=== PATIENT | female | born 1955 | race Caucasian/White ===

== ENCOUNTER → 2016-06-13 | Outpatient (CLI) | payer BC ==
[~2016-06-13] MED LIST: ASPIRIN81 M2 PO; DELTASONE20 MG PO; LANSOPRAZOLE15 MG PO; LASIX20 MG PO; LEVOTHYROXINE112 MCG PO; MOXIFLOXACIN H400 MG PO; XARELTO15 MG PO
--- NOTE | ~2016-06-13 | US85 ---
[facility] A Service of [facility] & [facility] RADIOLOGY TEXT RESULTS PATIENT: JEN GIBSON LOCATION: CNIV : 54 UNIT #: [id number] AGE: [address]: BEV GRESHAM SEX: F ORDER DR: [id number] [facility] [address] [place], [place] [address] [id number] O MR#: [id number] Acc #: [id number] NAME: JEN GIBSON. : 1955 SEX: F STUDY DATE/TIME: 06/13/2016 8:53 UNIT: CNIV ROOM: STUDY DESCRIPTION: LE Veins Unilat or Ltd Stdy Attending Physician: Bev Gresham Aprn Referring Physician: Bev Gresham Aprn Ordering Physician: Bev Gresham Aprn Primary Care Physician: Maria Elena Brownlee M.D. MEDICAL IMAGING REPORT This report is preliminary unless electronic signature is present EXAM Left lower extremity venous duplex 06/13/2016 HISTORY Left lower extremity pain and swelling for 1 week. Evaluate for deep vein thrombosis. TECHNIQUE Venous ultrasound examination of the left lower extremity was performed using grayscale, spectral Doppler and color flow Doppler imaging. FINDINGS The examination is negative. There is no evidence of left lower extremity deep venous thrombus from the groin to the lower calf. Visualized greater saphenous vein is also patent. IMPRESSION Negative examination. No evidence of left lower extremity deep venous thrombosis. Dictated by... Jose Jones M.D. THIS IS AN ELECTRONICALLY VERIFIED REPORT Jose Jones M.D. at 06/13/2016 4:58 PM JUNIOR/clyde TD: 06/13/2016 11:10 JOB #: [id number] MEDICAL IMAGING REPORT Page 1 of 1 COPY
== END | disposition home or self-care (01) ==
LOC: CNIV 08:06
DX: R60.0 Localized edema (principal)
CPT/HCPCS: 93971

== ENCOUNTER → 2016-07-07 | Outpatient (CLI) | payer BC ==
--- NOTE | ~2016-07-07 | US85 ---
[facility] A Service of [facility] & [facility] RADIOLOGY TEXT RESULTS PATIENT: JEN GIBSON LOCATION: SNIV : 54 UNIT #: [id number] AGE: [address]: Priya Haines APRN SEX: F ORDER DR: [id number] [address] [address] [id number] O MR#: [id number] Acc #: [id number] NAME: JEN GIBSON : 1955 SEX: F STUDY DATE/TIME: 07/07/2016 14:03 UNIT: SNIV ROOM: STUDY DESCRIPTION: US Srivastava Unilat or Ltd Stdy Attending Physician: Priya Haines A.P.R.N. Referring Physician: Priya Haines A.P.R.N. Ordering Physician: Priya Haines A.P.R.N. Primary Care Physician: Maria Elena Brownlee M.D. MEDICAL IMAGING REPORT This report is preliminary unless electronic signature is present. EXAM Left lower extremity venous duplex, 07/07/2016. HISTORY Left lower extremity pain, redness and swelling for 1 year, increasing over the past 6 months. Evaluate for deep vein thrombosis. FINDINGS Hernandez-scale images of the left lower extremity were obtained, as well as Doppler waveform spectral analysis, and color flow Doppler imaging. There is normal blood flow and compressibility in the left common femoral vein, deep femoral vein, superficial femoral vein, and popliteal vein. Normal blood flow and compressibility is seen in the left calf veins. There is, however, occlusive thrombus in the distal left greater saphenous vein. There is also a noncompressible thrombosed varicose vein in the left distal thigh region. IMPRESSION 1. No evidence of deep vein thrombosis in the left lower extremity. 2. Occlusive thrombus in the distal left greater saphenous vein, as well as within a varicose vein in the distal left thigh characteristic of superficial thrombophlebitis. STAT * RESULT Dictated by... Jose Jones M.D. THIS IS AN ELECTRONICALLY VERIFIED REPORT Jose Jones M.D. at 07/08/2016 7:23 AM [facility] A Service of [facility] & [facility] RADIOLOGY TEXT RESULTS PATIENT: JEN GIBSON LOCATION: SNIV : 54 UNIT #: [id number] AGE: [address]: Priya aHines APRN SEX: F ORDER DR: Vishnu TD: 07/07/2016 14:47 JOB #: [id number] MEDICAL IMAGING REPORT Page 1 of 1
--- NOTE | ~2016-07-07 | CT4 ---
[facility] A Service [facility] RADIOLOGY TEXT RESULTS PATIENT: JEN GIBSON LOCATION: [facility] : 54 UNIT #: [id number] AGE: [address]: Priya Haines APRN SEX: F ORDER DR: [id number] [address] [address] [id number] O MR#: [id number] Acc #: [id number] NAME: JEN GIBSON : 1955 SEX: F STUDY DATE/TIME: 07/07/2016 14:28 UNIT: [facility] ROOM: STUDY DESCRIPTION: CT Abd and Pelv Wo Cont Attending Physician: Priya Haines A.P.R.N. Referring Physician: Priya Haines A.P.R.N. Ordering Physician: Priya Haines A.P.R.N. Primary Care Physician: Maria Elena Brownlee M.D. MEDICAL IMAGING REPORT This report is preliminary unless electronic signature is present. EXAM CT abdomen and pelvis INDICATION Postmenopausal bleeding for 1 week. Left lower extremity swelling for [address] of the abdomen and pelvis without contrast. Coronal and sagittal reconstructions were obtained. This CT exam was performed with one or more of the following radiation dose reduction techniques: automatic exposure control, adjustment of mA and/or kV according to patient size, and iterative reconstruction. COMPARISON CT abdomen and pelvis, 04/04/2013 FINDINGS ABDOMEN: There is a small hiatal hernia. Noncontrast evaluation of the solid abdominal organs are within normal limits. The gallbladder is surgically absent. No urinary calculi. No hydronephrosis. The bowel is not dilated. The appendix is normal. No enlarged retroperitoneal or mesenteric lymph nodes. PELVIS: The uterus and ovaries are within normal limits. No enlarged pelvic or inguinal lymph nodes. Bladder is decompressed. No acute osseous abnormalities. Degenerative changes are noted in the lumbar spine. [facility] A Service [facility] RADIOLOGY TEXT RESULTS PATIENT: JEN GIBSON LOCATION: SNIV : 54 UNIT #: [id number] AGE: [address]: Priya Haines APRN SEX: F ORDER DR: IMPRESSION No acute findings in the abdomen or pelvis. Dictated by... Shaggy Herbert M.D. THIS IS AN ELECTRONICALLY VERIFIED REPORT Shaggy Herbert M.D. at 07/08/2016 11:30 AM Jan TD: 07/08/2016 11:04 JOB #: [id number] MEDICAL IMAGING REPORT Page 1 of 1
== END | disposition home or self-care (01) ==
LOC: SNIV 13:26
DX: R60.0 Localized edema (principal); N95.0 Postmenopausal bleeding; I82.812 Embolism and thrombosis of superficial veins of left lower extremity
CPT/HCPCS: 74176; 93971

== ENCOUNTER 2016-10-19 05:55 | Inpatient (IN) | payer BC ==
[~2016-10-19] VITALS: Ht 165.1 cm; Wt 120.0 kg
--- NOTE | ~2016-10-19 | HP ---
Unit #: [id number] #: [id number] Patient: JEN GIBSON [id number] [facility]. [place], [place] [address] [id number] I MR#: [id number] NAME: JEN GIBSON. ROOM: 553 Age: 60 Sex: F Admission Date: 10/19/2016 : 1955 Attending Physician: Kaci Barraza M.D. Primary Care Physician: Maria Elena Brownlee M.D. HISTORY AND PHYSICAL CHIEF COMPLAINT Severe back pain, cough, short of air HISTORY OF PRESENT ILLNESS The patient is a 60-year-old female with past medical history of paroxysmal atrial fibrillation, gastroparesis, hypothyroidism, who presented to [facility] for evaluation of the above. The patient states that she was in her usual state of health until the evening of October 17 when she experienced pain in the mid back. She states that it is "excruciatingly sharp." It is alleviated somewhat by standing. She has had similar pain in the past, but not as severe. She reports chills. She has also had an occasionally productive cough and increasing shortness of breath. She denies any vomiting. No diarrhea. No urinary symptoms. Of note, the patient underwent "vein stripping" of the left lower extremity on September 29, 2016, by Dr. Shelby at [facility]. In the emergency department, initial pulse and blood pressure were 93 and 146/80 respectively, oxygen saturation was 96% on room air. CT of the chest PE protocol was done and showed bilateral pulmonary emboli. She was given 324 mg of aspirin as well as 1 mg/kg subcutaneous of Lovenox. She was transferred to [facility] for admission. PAST MEDICAL HISTORY 1. The patient denies hospitalizations. 2. Hypothyroidism. 3. Paroxysmal atrial fibrillation followed by Dr. Denise. She currently has a loop recorder in place. She is not on chronic anticoagulation. 4. Gastroparesis followed by Dr. Martinez. PAST SURGICAL HISTORY 1. Vein stripping of the left lower extremity 2. Colonoscopy within the past year at [facility] with Dr. Martinez (no records) 3. EGD about 20 years ago (no records) SOCIAL HISTORY The patient lives with her . There is no tobacco or alcohol use. 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 FAMILY HISTORY Is notable for her mother having borderline diabetes. Her dad at the age of 70 of pancreatic cancer. Unit #: [id number] #: [id number] Patient: JEN GIBSON ALLERGIES No known allergies. HOME MEDICATIONS 1. Lansoprazole 15 mg daily 2. Levothyroxine 112 mcg daily 3. Aspirin 81 mg daily 4. Lasix 20 mg daily REVIEW OF SYSTEMS A complete review of systems is negative except as indicated in the HPI. The patient states that she was recently put on Lasix by her primary care physician due to swelling of the left lower extremity. She has never been told that she has heart failure. DIAGNOSTIC STUDIES CARDIOLOGY: EKG shows sinus rhythm with a rate of 94 beats per minute. IMAGING: CT of the chest PE protocol shows bilateral acute pulmonary emboli. There is no embolus in the right or left main pulmonary arteries, and there is no evidence for right heart strain. LABORATORY: Troponin isles than 0.05. Comprehensive metabolic panel notable for alkaline phosphatase of 136, INR is 1.1. Complete blood count is essentially normal. PHYSICAL EXAMINATION VITAL SIGNS: Temperature 98.6, pulse 93, respirations 20, blood pressure 146/88. Oxygen saturation is 96% on room air. GENERAL: The patient is a very pleasant female who is awake and alert in no acute distress. HEENT: The head is atraumatic. Mucous membranes are moist. NECK: Supple. Trachea is midline. CARDIOVASCULAR: Regular rate and rhythm. LUNGS: Clear to auscultation bilaterally with no increased work of breathing. ABDOMEN: Soft, nontender, with bowel sounds present in all four quadrants. EXTREMITIES: Nontender. The left calf is grossly larger than the right. NEUROLOGIC: The patient is awake and alert. She follows commands. PSYCHIATRIC: Mood and affect are normal. The patient is cooperative. SKIN: Of examined areas is warm and dry. MUSCULOSKELETAL: The patient is mildly tenderness to palpation in the right lower chest wall laterally and posteriorly. ASSESSMENT The patient is a 60-year-old female with: 1. Bilateral pulmonary emboli. The patient received Lovenox 1 mg/kg subcutaneous in the emergency department at [facility]. 2. Paroxysmal atrial fibrillation, not on chronic anticoagulation, followed by Dr. Denise. The patient currently has a loop recorder in place. 3. History of vein stripping of the left lower extremity September 29, 2016. 4. History of gastroparesis, followed by Dr. Martinez. 5. Hypothyroidism, maintained on levothyroxine. 6. Morbid obesity with a BMI of 43. PLAN Unit #: [id number] #: [id number] Patient: JEN GIBSON 1. Admit to intermediate level. 2. Healthy heart diet. 3. Heparin drip high-intensity per protocol with no initial bolus to be started at the time the next Lovenox would be due. 4. Bilateral lower extremities venous Doppler. 5. Two-dimensional echocardiogram for further evaluation of possible right heart strain. 6. Consult Dr. Moran regarding pulmonary embolism. 7. Serial cardiac enzymes. 8. Toradol p.r.n. 9. Zofran p.r.n. 10. Supplemental oxygen. 11. Serial cardiac enzymes. 12. Check TSH. 13. Repeat labs in the morning including INR. 14. Additional workup and consultants based on above. Dictated by Jose Mota/kumar TD: 10/19/2016 14:15 JOB #: [id number] HISTORY AND PHYSICAL Page 1 of 1 X Kaci Barraza MD X HISTORY AND PHYSICAL
--- NOTE | ~2016-10-19 | BMI ---
[facility] Nutrition Therapy DATE: 10/20/16 Patient: JEN GIBSON Physician: ANDER Address: [address] [place] [address] Room/Bed: [address] [place] [address], Zip: [place] [address] Admit Date: 10/19/16 Date of : [birth year] Height: 5 5 Weight: 264 120 HIGH BMI NOTE: ANTHROPOMETRICS: HT: 5'5" WT: 120 KG BMI: 44 DIET: HEART HEALTHY RECOMMENDATIONS: 1. CONTINUE CURRENT DIET IN ORDER TO PROMOTE GRADUAL WEIGHT LOSS TOWARDS A HEALTHY BMI. Respectfully, HELENE OWEN RD, LD Food and Nutritional Services [facility] cc: client file
--- NOTE | ~2016-10-19 | CT16 ---
[facility] A Service [facility] RADIOLOGY TEXT RESULTS PATIENT: JEN GIBSON LOCATION: [place] [address] : [birth year] UNIT #: [id number] AGE: [address]: Adiel Bowens MD SEX: F ORDER DR: [id number] [address] [address] [id number] E MR#: [id number] Acc #: [id number] NAME: JEN GIBSON : 1955 SEX: F STUDY DATE/TIME: 10/19/2016 7:27 UNIT: SED ROOM: STUDY DESCRIPTION: CT Angio Chest for PE Attending Physician: Sameer Galindo Ordering Physician: Sameer Galindo Primary Care Physician: Maria Elena Brownlee M.D. MEDICAL IMAGING REPORT This report is preliminary unless electronic signature is present. EXAM CTA chest PE protocol INDICATION Right upper back pain and shortness of air for the past 2 days. Right-sided lower chest pain for the past month. PROCEDURE Contrast-enhanced CTA of the chest attention on opacification of the pulmonary arteries. This CT examination was performed with one or more of the following radiation dose reduction techniques: automatic exposure control, adjustment of mA and/or kV according to patient size, and iterative reconstruction. COMPARISON None. FINDINGS Scattered acute pulmonary emboli, greater on the right than the left. There is no pulmonary embolus in the right or left main pulmonary artery. No saddle component. No adenopathy. No acute findings in the included upper abdomen. Areas of linear atelectasis in the right lung base. Subpleural atelectasis or a trace amount of fluid on the right. No aggressive appearing bone lesion. No evidence for right heart strain. IMPRESSION Bilateral acute pulmonary emboli. There is no embolus in the right or left main pulmonary arteries and there is no evidence for right heart strain. [facility] A [facility] RADIOLOGY TEXT RESULTS PATIENT: JEN GIBSON LOCATION: [place] [address] : [birth year] UNIT #: [id number] AGE: [address]: Adiel Bowens MD SEX: F ORDER DR: Dictated by... Chad Lake M.D. THIS IS AN ELECTRONICALLY VERIFIED REPORT Chad Lake M.D. at 10/20/2016 8:14 AM KEVON/clyde TD: 10/19/2016 08:22 JOB #: [id number] MEDICAL IMAGING REPORT Page 1 of 1
--- NOTE | ~2016-10-19 | CO ---
Unit #: [id number] #: [id number] Patient: EJN GIBSON [id number] [place], [place] [address] [id number] I MR#: [id number] NAME: JEN GIBSON ROOM: 55 Age: 60 Sex: F Admission Date: 10/19/2016 : 1955 Attending Physician: Adiel Bowens M.D. Primary Care Physician: Maria Elena Brownlee M.D. CONSULTATION REPORT REASON FOR EVALUATION Bilateral pulmonary emboli. Please evaluate. HISTORY OF PRESENT ILLNESS This 60-year-old lady, who leads a sedentary life, had vein stripping done on the left leg and at that time postoperatively they had told her that there was a phase one clot which will not progress, but that was in the groin area. I do not have those results. 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 D and C was done in 08/2016. She started having backaches about 48 hours ago, but states that all last week she was not feeling good, having backache sharp in nature middle of the night. 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 She was found to have bilateral PEs. A Doppler was done of the legs and result is pending. PAST MEDICAL HISTORY 1. Negative for blood dyscrasias, but she states that she does get phlebitis and earlier this year was told that it was superficial severe phlebitis always in the left leg. 2. Remarkable for hypothyroidism. 3. Atrial flutter/fibrillation. Do not have much report on that. 4. Gastroparesis. SOCIAL HISTORY Nonsmoker. No alcohol usage. 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 FAMILY HISTORY Negative for blood dyscrasias and positive for varicose veins in both parents. ALLERGIES No known drug allergies. CHRONIC MEDICATIONS 1. Levothyroxine. 2. Aspirin. 3. Lasix. 4. Lansoprazole. REVIEW OF SYSTEMS Anxious. is with her. Eight or ten systems were reviewed and are unremarkable. PHYSICAL EXAMINATION Unit #: [id number] #: [id number] Patient: JEN GIBSON GENERAL: Central obesity. LYMPH: No palpable nodes. LUNGS: Clear. HEART: Distant S1 and S2. ABDOMEN: No organomegaly. EXTREMITIES: Right leg is normal to exam. Minimal edema around the left leg. Multiple small incisions where vein stripping was done. One to 2+ edema. Pulses are 2+. PELVIC: Not performed. DIAGNOSTIC STUDIES IMAGING: CT scan of the chest was reviewed. Results discussed. Bilateral small volume pulmonary emboli, right worse than left. No saddle embolus. Dopplers of the legs done, results pending. LABORATORY: Chemistry, BUN 25, creatinine 0.9, glucose 102, sodium 135, potassium 4, chloride 101, CO2 27, albumin 3.6, calcium 8.7. Hemoglobin 12.9, hematocrit 38.5, white count 8.3, platelets 207,000. ASSESSMENT This 60-year-old lady with risk factor of obesity and left-sided varicose vein stripping and pelvic surgery in August of this year has most probably a provoked thrombus with resultant pulmonary emboli, small volume. Otherwise healthy. No family history. PLAN We will proceed with a mini-workup which will include factor 5 Leiden, prothrombin gene mutation, lupus anticoagulant, anticardiolipin antiphospholipid antibodies and a d-dimer today. Will ask the master planner to evaluate for Xarelto starter pack and check that it is covered. Will see the patient in the office in a couple of weeks for the length of anticoagulation. All of this was discussed with the patient and her . Dictated by... Jose Rhodes/gz TD: 10/20/2016 12:15 JOB #: [id number] CONSULTATION REPORT Page 1 of 1 X Solitario Hutchinson MD X CONSULTATION REPORT
--- NOTE | ~2016-10-19 | EKG ---
PATIENT: JEN GIBSON UNIT #: [id number] Ventricular Rate: 94 BPM Atrial Rate: 94 BPM P-R Interval: 150 ms QRS Duration: 74 ms Q-T Interval: 386 ms QTC Calculation(Bezet): 482 ms P [place]: 31 degrees Calculated R [place]: 28 degrees Calculated T [place]: 1 degrees Diagnosis Line: Normal sinus rhythm Diagnosis Line: Possible Left atrial enlargement Diagnosis Line: Anterior infarct , age undetermined Diagnosis Line: ST and T wave abnormality, consider lateral ischemia Diagnosis Line: Abnormal ECG Diagnosis Line: No previous ECGs available Diagnosis Line: Confirmed by HALI MEYER MD ([id number]) on Diagnosis Line: 10/20/2016 4:04:55 PM INTERPRETING MD: MITCH HUTTON
--- NOTE | ~2016-10-19 | US84 ---
[id number] [facility]. [facility] [address] [place], [place] [address] [id number] I MR#: [id number] Acc #: [id number] NAME: JEN GIBSON : 1955 SEX: F STUDY DATE/TIME: 10/20/2016 9:52 UNIT: C5B ROOM: 553 STUDY DESCRIPTION: US LE Veins Complete Darrel Stdy Attending Physician: Adiel Bowens M.D. Ordering Physician: Kaci Barraza M.D. Primary Care Physician: Maria Elena Brownlee M.D. MEDICAL IMAGING REPORT This report is preliminary unless electronic signature is present EXAM Bilateral lower extremity Doppler venous ultrasound 10/20/2016 HISTORY Bilateral extremity pain, shortness breath for 4 days. Currently on baby aspirin. Currently not on blood thinners. History of left leg ablation 09/24/2016. TECHNIQUE Real-time hogan-scale, color Doppler SPECT Doppler imaging was performed bilateral lower extremity veins from the groin to the calf regions. FINDINGS The right lower extremity veins demonstrate normal flow, compressibility and/or augmentation without deep venous thrombosis. The left common femoral, femoral, popliteal and anterior tibial veins demonstrate thrombosis with only a scant preserved flow. There is also superficial venous thrombus within the greater saphenous vein, as well. The left posterior tibial vein and peroneal vein maintain normal flow. IMPRESSION 1. The study is positive for deep venous thrombosis within the left common femoral, femoral, popliteal, and anterior tibial veins. 2. No right lower extremity deep venous thrombosis is seen. 3. Superficial venous thrombus is seen in the distal left greater saphenous vein. I have called to convey the results of positive left lower extremity DVT to the patient's nurse, Eboni, on 10/20/2016 at 03:50 p.m. Dictated by... Gita Marie M.D. THIS IS AN ELECTRONICALLY VERIFIED REPORT Gita Marie M.D. at 10/21/2016 8:31 AM BELIA/tad TD: 10/21/2016 00:22 JOB #: [id number] MEDICAL IMAGING REPORT Page 1 of 1 COPY
[~2016-10-19 05:55] MED LIST changes: -ASPIRIN81 M2 PO; -LASIX20 MG PO; -XARELTO15 MG PO
[2016-10-19] MEDS ORDERED: ASPIRIN81 M2 PO (06:05)
[2016-10-19 06:45] LABS: BASOPHIL# 0.1 X10e3 (0-0.3); BASOPHIL% 0.8 % (0-2.5); EOSINOPHIL# 0.3 X10e3 (0-0.7); EOSINOPHIL% 2.5 % (0.0-7.0); HEMATOCRIT 42.2 % (35.0-45.0); HEMOGLOBIN 14.3 gm/dL (12.0-16.0); LYMPHOCYTE# 1.5 X10e3 (1.0-3.5); LYMPHOCYTE% 15.3 % (17.0-45.0); MEAN CELL VOLUME 87.5 FL (83-96); MEAN CORPUSCULAR HEMOGLOBIN 29.6 PG (28-34); MEAN CORPUSCULAR HGB CONC 33.9 g/dL (30-36); MEAN PLATELET VOLUME 6.5 FL (6.5-11.5); MONOCYTE# 0.8 X10e3 (0-1.0); MONOCYTE% 8.2 % (3.0-12.0); NEUTROPHIL# 7.3 X10e3 (1.5-7.1); NEUTROPHIL% 73.2 % (40-75); PLATELET COUNT 245 X10e3 (140-420); RED BLOOD COUNT 4.83 X10e (3.90-5.30); RED CELL DISTRIBUTION WIDTH 13.7 % (11.0-15.5)
[2016-10-19 06:46] LABS: DIFF IND NO
[2016-10-19 06:53] LABS: INR 1.1; PROTHROMBIN TIME (PATIENT) 12.8 SECONDS (9.5-12.4)
[2016-10-19 07:01] LABS: PARTIAL THROMBOPLASTIN TIME 25.9 SECONDS (25.6-38.1)
[2016-10-19 07:02] LABS: BILIRUBIN, DIRECT 0.3 mg/dL (0.0-0.2); BILIRUBIN,INDIRECT 0.9 mg/dL (0.0-0.9); BILIRUBIN,TOTAL 1.2 mg/dL (0.2-2.0); CREATININE SERUM 0.9 mg/dL (0.6-1.4); GLOM FILT RATE Estimated 69.1 mL/min (>60); POTASSIUM 3.7 mmol/L (3.5-5.1); PROTEIN TOTAL SERUM 7.9 g/dL (6.0-8.3)
[2016-10-19 08:29] LABS: POC - CKMB <1.0 ng/mL (0.0-7.9); POC - TROPONIN <0.05 ng/mL (<=0.05)
[2016-10-19] MEDS ORDERED: LASIX20 MG PO (10:50)
[2016-10-20 02:13] LABS: POC - CKMB <1.0 ng/mL (0.0-7.9); POC - TROPONIN <0.05 ng/mL (<=0.05)
[2016-10-20 03:50] LABS: BASOPHIL# 0.1 X10e3 (0-0.3); BASOPHIL% 0.9 % (0-2.5); EOSINOPHIL# 0.5 X10e3 (0-0.7); EOSINOPHIL% 5.8 % (0.0-7.0); HEMATOCRIT 38.5 % (35.0-45.0); HEMOGLOBIN 12.9 gm/dL (12.0-16.0); LYMPHOCYTE# 1.8 X10e3 (1.0-3.5); MEAN CELL VOLUME 88.2 FL (83-96); MEAN CORPUSCULAR HEMOGLOBIN 29.5 PG (28-34); MEAN CORPUSCULAR HGB CONC 33.4 g/dL (30-36); MEAN PLATELET VOLUME 6.5 FL (6.5-11.5); MONOCYTE# 0.8 X10e3 (0-1.0); MONOCYTE% 9.5 % (3.0-12.0); NEUTROPHIL# 5.1 X10e3 (1.5-7.1); NEUTROPHIL% 61.8 % (40-75); PLATELET COUNT 207 X10e3 (140-420); RED BLOOD COUNT 4.37 X10e (3.90-5.30); RED CELL DISTRIBUTION WIDTH 13.5 % (11.0-15.5); WHITE BLOOD COUNT 8.3 X10e3 (4.0-10.5)
[2016-10-20 03:52] LABS: DIFF IND NO
[2016-10-20 04:05] LABS: PROTHROMBIN TIME (PATIENT) 11.1 SECONDS (10.0-11.7)
[2016-10-20 04:29] LABS: ALBUMIN SERUM 3.6 g/dL (3.5-5.0); BILIRUBIN,TOTAL 1.3 mg/dL (0.2-2.0); BUN/CREATININE RATIO 27.77; CALCIUM SERUM 8.7 mg/dL (8.4-10.2); CREATININE SERUM 0.9 mg/dL (0.6-1.4); GLOM FILT RATE Estimated 69.1 mL/min (>60); PROTEIN TOTAL SERUM 7.4 g/dL (6.0-8.3)
[2016-10-20] MEDS ORDERED: XARELTO15 MG PO (14:54)
[2016-10-23 15:07] LABS: CARDIOLIPIN IGG (LUPUS) <14 GPL (<=14); CARDIOLIPIN IGM (LUPUS) <12 MPL (<=12); DRVVT MIX INTERP (LUPUS) Not Indicated (()); HEXAGONAL PHASE CONF (LUPUS) Positive (Negative); IMM PTT LA MIX NOT CORRECTED (()); INR LUPUS 1.1 (()); PROTROMBIN TIME LUPUS 11.7 sec (9.0-11.5); PT (LA MIX STUDY) 11.7 sec (<=11.5); PTT MIX INTERP Has been added (()); PTT-LA 151 sec (<=40); PTT-LA SCREEN (LUPUS) 151 sec (<=40); THROMBIN TIME LUPUS >100 sec (13-19); dRVVT SCREEN (LUPUS) 42 sec (<=45)
== END 2016-10-20 15:55 | disposition home or self-care (01) | DRG 176 ==
LOC: SED 05:55 → SEDOF 08:55 → SED 08:55 → C5B 08:55 → CEDOF 09:50 → SEDOF 09:50 → CEDOF 09:50 → C5B 10:25 → CEDOF 10:25 → SEDOF 12:50 → C5B 12:50
PROVIDERS: Emergency Medicine; Family Medicine
PROC: B32TYZZ Computerized Tomography (CT Scan) of Left Pulmonary Artery using Other Contrast (ICD-10-PCS; principal; 2016-10-19)
PROC: B32SYZZ Computerized Tomography (CT Scan) of Right Pulmonary Artery using Other Contrast (ICD-10-PCS; 2016-10-19)
PROC: B24BYZZ Ultrasonography of Heart with Aorta using Other Contrast (ICD-10-PCS; 2016-10-19)
DX: I26.99 Other pulmonary embolism without acute cor pulmonale (principal); Z68.41 Body mass index [BMI] 40.0-44.9, adult; I48.0 Paroxysmal atrial fibrillation; K31.84 Gastroparesis; E66.01 Morbid (severe) obesity due to excess calories; E03.9 Hypothyroidism, unspecified; Z79.82 Long term (current) use of aspirin
CPT/HCPCS: 36415; 71275; 80048; 80053; 80076; 81240; 81241; 82550; 82553; 84443; 84484; 85025; 85379; 85598; 85610; 85613; 85670; 85730; 86146; 86147; 86148; 93005; 93306; 93970; 96374; 99285; J1644; J1650; J1885; J2270; J2405; Q9967